=== PATIENT | female | born 1990 | race Caucasian/White ===

== ENCOUNTER 2018-02-24 17:28 | Emergency (ER) | payer MEDICAID ==
[~2018-02-24] VITALS: Ht 160 cm; Wt 55.3 kg
[2018-02-24 17:42] VITALS: BP 122/52
[2018-02-24] MEDS ORDERED: ULTRAM ONE (17:48)
[2018-02-24] MEDS ORDERED: TORADOL IM STA (17:49)
[2018-02-24] MEDS ORDERED: TORADOL ONE (17:50)
--- NOTE | 2018-02-24 17:52 | ER.PDOC ---
General Chief Complaint: Extremities Stated Complaint: FALL,LEFT SHOULDER INJURY Time seen by MD: 17:50 Source: patient Exam Limitations: no limitations History of Present Illness Initial Comments Left shoulder pain from falling 3 days ago. She denied hitting her head. Severity: moderate Context: fall Allergies: Coded Allergies: No Known Allergies (Unverified , 02/24/18) Past Medical History Medical History: no pertinent history Surgical History: cholecystectomy, , hip, tubal, other LMP (females 10-50): tubal Social History Smoking: greater than 1 pack/day Alcohol Use: rarely Drug Use: none Review of Systems Constitutional: no symptoms reported EENTM: no symptoms reported Respiratory: no symptoms reported Cardiovascular: no symptoms reported Gastrointestinal: no symptoms reported Musculoskeletal: see HPI All Other Systems: Reviewed and Negative Physical Exam General Appearance: Alert, No Apparent Distress Shoulder: tenderness (left) Upper Extremities: uninjuried below shoulder Neuro: sensation nml, motor nml Vascular: no vascular compromise Skin: warm/dry Head/ENT: nml inspection, pharynx nml Neck/Back: non-tender, nml inspection, painless ROM Respiratory: chest non-tender, breath sounds nml CVS: reg rate & rhythm, heart sounds nml Abdomen: non-tender, no organomegaly Results/Orders Results/Orders Administered Medications Medications (Trade) Dose Ordered Sig/Isa Route PRN Reason Start Time Stop Time Status Last Admin Dose Admin Ketorolac Tromethamine (Toradol) 60 mg STAT STAT IM 02/24/18 17:49 02/24/18 17:53 DC 02/24/18 18:11 EKG/XRAY/CT/US XRAY Comments: Normal left shoulder Departure Time of Disposition: 18:18 Disposition: 01 HOME, SELF-CARE Impression: Primary Impression: Shoulder pain, left Condition: Stable Referrals: PCP,UNKNOWN (PCP) PRIMARY CARE PROVIDER Additional Instructions: Ibuprofen Tramadol F/U with Dr. Malhotra next week Duration or Time Spent with Pa: 30 mins Problem Qualifiers Primary Impression: Shoulder pain, left Chronicity: acute Qualified Codes: M25.512 - Pain in left shoulder ZULEYKA PAL MD February 24, 2018 17:52
--- NOTE | 2018-02-24 18:08 | DIREP ---
PROCEDURE:XRAY SHOULDER MIN 2 VWS-LT COMPARISON:None. INDICATIONS:pain from falling FINDINGS: BONES:Normal. JOINTS:Normal glenohumeral and acromioclavicular joints. No evidence for dislocation. SOFT TISSUES:Normal. OTHER:Normal. CONCLUSION:Normal left shoulder. Dictated by: Williams Rascon M.D. on 02/24/2018 at 06:07 PM
[2018-02-24 18:38] VITALS: BP 122/52
== END 2018-02-24 18:35 | disposition home or self-care (01) ==
LOC: ER 17:28
DX: M25.512 Pain in left shoulder (principal); F17.200 Nicotine dependence, unspecified, uncomplicated; Z90.49 Acquired absence of other specified parts of digestive tract; W19.XXXA Unspecified fall, initial encounter; Y93.89 Activity, other specified; Y92.89 Other specified places as the place of occurrence of the external cause; Y99.8 Other external cause status
CPT/HCPCS: 73030; 96372; 99284; J1885